=== PATIENT | female | born 1955 | race Caucasian/White ===

== ENCOUNTER 2017-06-18 09:13 | Emergency (ER) | payer MEDICARE, MEDICAID ==
[~2017-06-18] VITALS: Ht 162.6 cm; Wt 90.7 kg
[~2017-06-18 09:13] MED LIST: ABILIFY; ABILIFY10 MG PO; AMBIEN PO; B12INJ IM; BACTRIM DS TAB1 EACH PO; BENADRYL25 MG PO; BENZTROPINE MES1 MG PO; CLONAZEPAM; CYCLOBENZAPRINE; CYMBALTA; DESYREL50 MG PO; DIAZEPAM 2MG TAB2 MG PO; ESTRADIOL 1 MG T1 M1 PO; HYDROCODONE-AP1 EAC6 PO; HYDROCODONE-APA1 TA1 PO; IBUPROFEN 400400 M2 PO; IBUPROFEN 800800 MG PO; INVEGA3 MG PO; LAMICTAL; LAMICTAL100 MG PO; LISINOPRIL5 MG PO; MEDROLDOSEPACK PO; MELATONIN10 M1 PO; NEXIUM40 MG PO; NORCO 5-325 TA1 EACH PO; ONDANSETRON HCL4 M2 SUBLING; PENICILLIN VK250 MG PO; PEPCID40 MG PO; PERCOCET 5-3251 EACH PO; PREDNISONE 10 M10 M1 PO; PREDNISONE 10 M10 MG PO; PRENATAL PO; PRISTIQ50 M1 PO; SENNA8.6 MG PO; TRAZODONE HCL50 MG PO; TYLENOL325 MG PO; VENTOLIN HFA 1818 GM INH; VITAMIN D 5050000 I1 PO; XANAX 0.5 MG0.5 MG PO; XOPENEX HF1 UDINHALE INH; ZPAK PO
[2017-06-18] MEDS ORDERED: XANAX 0.5 MG0.5 MG PO (09:38)
[2017-06-18] MEDS ORDERED: XANAX1 MG PO (09:39)
[2017-06-18] MEDS ORDERED: ERGOCALCIF50000 UNIT PO (09:42)
[2017-06-18] MEDS ORDERED: WELLBUTRIN SR100 MG PO (09:45)
[2017-06-18] MEDS ORDERED: PROPRANOLOL 1010 MG PO (09:46)
[2017-06-18] MEDS ORDERED: DEPAKOTE ER250 MG PO (09:47)
[2017-06-18] MEDS ORDERED: SAPHRIS5 MG SUBLING (09:47)
[2017-06-18] MEDS ORDERED: NAPROSYN500 MG PO (09:57)
[2017-06-18 10:11] VITALS: BP 122/77
[2018-01-11] MEDS ORDERED: B12INJ IM (10:36)
[2018-01-11] MEDS ORDERED: MOBIC15 MG PO (10:37)
[2018-01-11] MEDS ORDERED: MACROBID 100 M100 M2 PO (10:39)
[2018-01-11] MEDS ORDERED: SAPHRIS5 MG SUBLING (11:05)
[2018-01-11] MEDS ORDERED: VRAYLAR3 MG PO (11:05)
[2018-01-11] MEDS ORDERED: PHENTERMINE HCL15 MG PO (11:09)
[2018-01-11] MEDS ORDERED: XANAX 0.5 MG0.5 MG PO (11:13)
== END 2017-06-18 10:11 | disposition home or self-care (01) ==
LOC: M.ERS 09:13
DX: M54.5 Low back pain (principal); F17.210 Nicotine dependence, cigarettes, uncomplicated

== ENCOUNTER 2017-11-20 15:20 | Inpatient (IN) | payer MEDICARE, MEDICAID ==
[~2017-11-20] VITALS: Ht 154.9 cm; Wt 86.6 kg
[~2017-11-20 15:20] MED LIST changes: +DEPAKOTE ER250 MG PO; +ERGOCALCIF50000 UNIT PO; +NAPROSYN500 MG PO; +PROPRANOLOL 1010 MG PO; +SAPHRIS5 MG SUBLING; +WELLBUTRIN SR100 MG PO; +XANAX1 MG PO
[2017-11-20 15:21] VITALS: BP 141/80
[2017-11-20] MEDS ORDERED: FOLGARD TABLET1 EAC1 PO (15:27)
[2017-11-20] MEDS ORDERED: LAMICTAL100 MG PO (15:28)
[2017-11-20] MEDS ORDERED: RESTORIL30 MG PO (15:28)
[2017-11-20] MEDS ORDERED: TRAZODONE HCL100 MG PO (15:28)
[2017-11-20] MEDS ORDERED: VRAYLAR1 EACH PO (15:29)
[2017-11-20 15:49] LABS: ABSOLUTE BASOPHILS 0.1 thou/uL (0.0-0.2); ABSOLUTE EOSINOPHILS 0.4 thou/uL (0.0-0.7); ABSOLUTE MONOCYTES 0.4 thou/uL (0.0-1.2); ABSOLUTE NEUTROPHILS 6.5 thou/uL (1.6-8.1); BASOPHILS 0.6 %; EOSINOPHILS 4.7 %; HEMATOCRIT 42.9 % (37.0-47.0); HEMOGLOBIN 14.6 gm/dL (12.0-15.0); LYMPHOCYTES 21.4 %; MCH 31.1 pg (26.0-34.0); MCV 91.5 fL (80.0-100.0); MONOCYTES 4.1 %; MPV 8.5 fl. (7.2-11.1); NUCLEATED RBCS 0 /100WBC; PLATELET COUNT* 288 thou/uL (150-400); POLYS 69.2 %; RBC 4.69 mil/uL (4.20-5.00); RDW-CV 14.3 % (10.5-14.5); WBC 9.4 thou/uL (4.0-11.0)
[2017-11-20 15:58] LABS: ANION GAP 9 mmol/L (7-16); APTT 27.1 Seconds (25.0-31.3); BUN 13 mg/dL (7-18); CALCIUM 9.7 mg/dL (8.5-10.1); CHLORIDE 103 mmol/L (98-107); CO2 28 mmol/L (21-32); CREATININE 0.6 mg/dL (0.6-1.3); GLUCOSE 105 mg/dL (70-99); POTASSIUM 3.9 mmol/L (3.5-5.1); PROTIME 10.1 Seconds (9.20-11.50); SODIUM 140 mmol/L (136-145)
[2017-11-20 16:08] LABS: ALBUMIN 3.4 g/dL (3.4-5.0); ALKALINE PHOSPHATASE 78 U/L (46-116); LIPASE 174 U/L (73-393); MAGNESIUM 1.7 mg/dL (1.8-2.4); NT-PRO BRAIN NAT PEPTIDE 52 pg/mL (<300); SGOT 17 U/L (15-37); SGPT 25 U/L (30-65); TOTAL BILIRUBIN 0.3 mg/dL (<0.1-1.0); TOTAL PROTEIN 7.2 g/dL (6.4-8.2); TROPONIN-I LEVEL <0.06 ng/mL (<0.06)
[2017-11-20 16:51] VITALS: BP 122/75
[2017-11-20 17:48] VITALS: BP 126/72
[2017-11-20 19:55] VITALS: BP 116/76
[2017-11-20] MEDS ORDERED: XANAX 0.5 MG0.5 MG PO (22:31)
[2017-11-21 06:11] VITALS: BP 117/77
[2017-11-21 07:35] VITALS: BP 121/71
--- NOTE | 2017-11-21 12:31 | EKG ---
[place] [address] ELECTROCARDIOGRAM REPORT Name: JORGE LUIS HARIRS Room: [address] ADM IN [facility]#: [id number] Admission: 11/20/17 Attend Phys: Savage Duong, Discharge: Date of : 59 Report #: [id number] THIS REPORT FOR: //name// [facility] ED Test Date: 2017-11-20 Test Time: 15:27:31 Pat Name: JORGE LUIS HARRIS Department: Room: [facility] Gender: F [employer] Manager: Louise HILLIARD : 1955 Requested By: Jose L Orourke Order Number: [id number] MD: Carloz Cannon Measurements Intervals [place] Rate: 90 P: 22 CO: 147 QRS: 57 QRSD: 77 T: 16 QT: 357 QTc: 437 Interpretive Statements Sinus rhythm Minimal ST elevation, lateral leads Compared to ECG 11/20/2015 12:38:06 ST (T wave) deviation now present Electronically Signed On 11-21-2017 12:30:48 CDT by Carloz Cannon [email or web address] <ELECTRONICALLY SIGNED> By: Carloz Cannon MD, FAC 11/21/17 1230 1527 1527 Carloz Cannon MD, [facility] /EPI
[2017-11-21 17:05] VITALS: BP 135/79
[2017-11-21 23:25] VITALS: BP 128/84
[2017-11-22 08:00] VITALS: BP 141/93
[2017-11-22 16:00] VITALS: BP 202/116
[2017-11-22 21:00] VITALS: BP 152/88
[2017-11-23 09:00] VITALS: BP 150/82
[2017-11-23 12:26] LABS: HEMATOCRIT 42.6 % (37.0-47.0); HEMOGLOBIN 14.3 gm/dL (12.0-15.0); MCH 30.8 pg (26.0-34.0); MCHC 33.5 g/dL (28.0-37.0); MPV 8.3 fl. (7.2-11.1); NUCLEATED RBCS 0 /100WBC; PLATELET COUNT* 340 thou/uL (150-400); RBC 4.63 mil/uL (4.20-5.00); RDW-CV 14.5 % (10.5-14.5); WBC 19.3 thou/uL (4.0-11.0)
[2017-11-23 12:35] LABS: CALCIUM 8.7 mg/dL (8.5-10.1); CREATININE 0.7 mg/dL (0.6-1.3); POTASSIUM 4.1 mmol/L (3.5-5.1)
[2017-11-23 13:05] LABS: ABSOLUTE LYMPHOCYTES 2.5 thou/uL (0.8-5.3); ABSOLUTE MONOCYTES 0.8 thou/uL (0.0-1.2)
[2017-11-23 13:06] LABS: PLATELET ESTIMATE ADEQUATE
[2017-11-23 13:07] LABS: LARGE PLATELETS RARE
[2017-11-23 14:29] LABS: URINE BILIRUBIN NEGATIVE (Negative); URINE BLOOD TRACE (Negative); URINE CLARITY CLEAR; URINE COLOR YELLOW; URINE GLUCOSE-RANDOM NEGATIVE (Negative); URINE KETONES NEGATIVE (Negative); URINE LEUKOCYTES 2+ (Negative); URINE NITRITE NEGATIVE (Negative); URINE PROTEIN NEGATIVE (Negative); URINE SPECIFIC GRAVITY <= 1.005 (1.005-1.030); URINE UROBILINOGEN 0.2 E.U./dl (0.2-1.0)
[2017-11-23 14:47] LABS: SQUAMOUS 0-3 Few /LPF (0-3)
[2017-11-23 14:48] LABS: URINE WBC 0-5 Rare /HPF (0-5)
[2017-11-23 14:49] LABS: BACTERIA 1-9 Few /HPF (None Seen); CASTS None Seen /LPF (None Seen); MUCUS None Seen strn/LPF (None Seen); URINE RBC 0-2 Rare /HPF (0-2)
[2017-11-23 14:50] LABS: CRYSTALS None Seen /LPF (None Seen)
[2017-11-23 16:51] VITALS: BP 107/59
[2017-11-24 07:40] VITALS: BP 145/78
[2017-11-24] MEDS ORDERED: CEFDINIR300 MG PO (11:30)
[2017-11-24] MEDS ORDERED: PREDNISONE 10 M10 MG PO (11:33)
[2017-11-24 12:01] VITALS: BP 145/78
[2018-01-11] MEDS ORDERED: B12INJ IM (10:36)
[2018-01-11] MEDS ORDERED: MOBIC15 MG PO (10:37)
[2018-01-11] MEDS ORDERED: MACROBID 100 M100 M2 PO (10:39)
[2018-01-11] MEDS ORDERED: SAPHRIS5 MG SUBLING (11:05)
[2018-01-11] MEDS ORDERED: VRAYLAR3 MG PO (11:05)
[2018-01-11] MEDS ORDERED: PHENTERMINE HCL15 MG PO (11:09)
[2018-01-11] MEDS ORDERED: XANAX 0.5 MG0.5 MG PO (11:13)
== END 2017-11-24 14:10 | disposition home or self-care (01) | DRG 871 ==
LOC: M.ERS 15:20 → M.TBA-ER 16:20 → M.ORTHSURG 16:20
PROVIDERS: Family Medicine; Internal Medicine; ADMIT Family Medicine
DX: A41.9 Sepsis, unspecified organism (principal); J96.01 Acute respiratory failure with hypoxia; J44.1 Chronic obstructive pulmonary disease with (acute) exacerbation; N39.0 Urinary tract infection, site not specified; F20.9 Schizophrenia, unspecified; E66.01 Morbid (severe) obesity due to excess calories; K21.9 Gastro-esophageal reflux disease without esophagitis; F17.210 Nicotine dependence, cigarettes, uncomplicated; F41.9 Anxiety disorder, unspecified; F32.9 Major depressive disorder, single episode, unspecified; D72.829 Elevated white blood cell count, unspecified; T38.0X5A Adverse effect of glucocorticoids and synthetic analogues, initial encounter; Y92.89 Other specified places as the place of occurrence of the external cause; Z68.36 Body mass index [BMI] 36.0-36.9, adult; Z98.84 Bariatric surgery status; Z90.49 Acquired absence of other specified parts of digestive tract; Z71.6 Tobacco abuse counseling; Z90.710 Acquired absence of both cervix and uterus; Z79.899 Other long term (current) drug therapy; Z88.8 Allergy status to other drugs, medicaments and biological substances; Z91.018 Allergy to other foods; Z81.8 Family history of other mental and behavioral disorders

== ENCOUNTER → 2017-12-16 | Outpatient (CLI) | payer MEDICARE, MEDICAID ==
[~2017-12-16] MED LIST changes: +CEFDINIR300 MG PO; +FOLGARD TABLET1 EAC1 PO; +MACROBID 100 M100 M2 PO; +MOBIC15 MG PO; +PHENTERMINE HCL15 MG PO; +RESTORIL30 MG PO; +TRAZODONE HCL100 MG PO; +VRAYLAR1 EACH PO; +VRAYLAR3 MG PO
== END ==
LOC: M.MRI 13:03
DX: M48.062 Spinal stenosis, lumbar region with neurogenic claudication (principal); M25.78 Osteophyte, vertebrae; M51.26 Other intervertebral disc displacement, lumbar region; I10 Essential (primary) hypertension; J44.9 Chronic obstructive pulmonary disease, unspecified; Z82.49 Family history of ischemic heart disease and other diseases of the circulatory system; Z87.891 Personal history of nicotine dependence

== ENCOUNTER → 2018-01-11 | Outpatient (CLI) | payer MEDICARE, MEDICAID ==
--- NOTE | 2018-01-17 10:00 | PAINCON ---
[address] [address] PAIN MANAGEMENT CONSULTATION Name: JORGE LUIS HARRIS [id number] Admission: 01/11/18 Attend Phys: Krissy Domingo MD Discharge: Date of : 59 Report #: [id number] THIS REPORT FOR: //name// CC: Tawnya Moe DATE OF SERVICE: 01/11/2018 CHIEF COMPLAINT: Back spine, hip and buttocks pain for about 6 months. HISTORY OF PRESENT ILLNESS: The patient is a 62-year-old female who has been referred to the pain clinic for evaluation. The patient states that for the last 6 months, she has been having more pain and discomfort. It involves in her low back area. Also, notes some pain and discomfort in the lower portion of the back and hip area. Notes some discomfort in her buttocks. She has some discomfort in the area of her spine. Denies any trauma. States that the pain has been on and off. Sometimes it is more painful than other times. The patient notes some difficulty with getting up in the morning. Notes that her pain can be pretty problematic at that juncture. She has not undergone physical therapy. States that she has been told by numerous people that physical therapy might be helpful. At this juncture, she is not inclined to go to physical therapy. Notes that standing doing dishes and activities of daily living can be quite problematic. Notes that if she sits for a while and leans forward she has some discomfort. The patient has undergone a gastric bypass. States that she weight about 300 pounds. Lost weight to about 100 pounds and currently is about 189 pounds. The patient has some difficulty remembering some facts. States that she has had about 24 ECT treatments and has some difficulty with time. ALLERGIES: TOPAMAX, THORAZINE, PEACHES caused angioedema, HALDOL causes hallucinations, TOPAMAX causes hives. CURRENT MEDICATIONS: Multivitamins, Centrum, propranolol 10 mg p.o. t.i.d., Depakote ER 1000 mg at bedtime, vitamin D3, folic acid, B12, Lamictal 100 mg daily, Restoril 30 mg at bedtime p.r.n. insomnia, trazodone 150 mg daily, Vraylar daily, alprazolam 1 mg p.o. at bedtime. DISCONTINUED MEDICATIONS: Alprazolam 0.5 mg, Drisdol 31278 units, Wellbutrin 100 mg a total of 200 mg daily, Saphris 5 mg sublingual 1700, Desyrel 50 mg/200 mg at bedtime, Nexium 40 mg daily, Pristiq 100 mg. PAST MEDICAL HISTORY: 1. Gastric bypass 5 years ago. 2. Multiple psych disorders. 3. [place] [address] PAIN MANAGEMENT CONSULTATION Name: ROSANNA HARRISLIE Joaquín [facility] [id number] Admission: 01/11/18 Attend Phys: Krissy Domingo MD Discharge: Date of : 59 Report #: [id number] 4. Hypercholesterolemia. 5. Hypercholesterolemia. PAST SURGICAL HISTORY: Hysterectomy, bladder tuck, laparoscopic cholecystectomy, electrical convulsive shock therapy. SOCIAL HISTORY: She is a , disabled. REVIEW OF SYSTEMS: Recent weight changes, fatigue, wears glasses, hearing loss, ear drainage, palpitations, frequent coughs, shortness of breath, wheezing, joint pain, joint stiffness, weakness of muscles, muscle pain, cramps, back pain, difficulty walking, lightheadedness, tremors. LABORATORY DATA: MRI of the lumbar spine dated 12/16/2017: 1. L2-L3, there is a broad-based disk bulging. There are facet osteophytes. The right and left paracentral spinal canal is narrowed measuring approximately 7 mm. There is a left foraminal protrusion. There were no significant foraminal stenosis. 2. L3-L4, there is a left extraforaminal disk bulging. The central spinal canal is not grossly narrowed. There is moderate left facet arthropathy. There is no evidence of neural foraminal stenosis. 3. L4-L5, there is left foraminal disk bulging, which appears to contact the left extraforaminal L5 nerve root. The central spinal canal is not grossly narrow. There is no evidence of neural foraminal stenosis. 4. L5-S1, there is broad-based disk bulging with a more focal right paracentral disk protrusion which contacts the right descending S1 nerve. There does not appear to be significant impingement on the nerve. The central spinal canal is not grossly narrow. A facet osteophyte probably results in [id number] right neural foraminal stenosis. PAIN CLINIC ASSESSMENT/PQRS: 1. History of osteoarthritis. The patient is not being treated for osteoarthritis or rheumatoid arthritis. 2. Height 5 feet 1 inch, weight 189 pounds, BMI is 36.3. 3. Vital Signs: Blood pressure 134/78, heart rate 101, respiratory rate 16, room air saturation 95%. Temperature 98.2. 4. Pain score 8/10. 5. Fall risk. The patient has not fallen in the last 3 months. 6. Blood thinner. The patient is not on a blood thinning medication. 7. History of hypertension. The patient has been treated for hypertension. 8. Opioid therapy. The patient is not on an opioid regimen. 9. Risk assessment tool. 10. Functional assessment tool. 11. Recreational drug use. The patient denies use of recreational drugs. 12. Tobacco: The patient does admit to smoking tobacco, has a strong odor of tobacco in the room [place] [address] PAIN MANAGEMENT CONSULTATION Name: JORGE LUIS HARRIS Room: [facility]#: [id number] Admission: 01/11/18 Attend Phys: Krissy Domingo MD Discharge: Date of : 59 Report #: [id number] 13. Alcohol: The patient denies use of alcoholic beverages. The patient has been smoking since age 15. PHYSICAL EXAMINATION: GENERAL: The patient is a well-developed, well-nourished white female. Appears assertive stated age. She is alert and oriented x 3. She does speak somewhat slow and is in a somewhat guarded fashion. Neck HEENT: Normocephalic, atraumatic. Extraocular eye muscles intact. Sclerae nonicteric. Mucous membranes are moist. The patient does not have teeth. She is edentulous. NECK: Without adenopathy or JVD. HEART: Regular rate. LUNGS: Clear to auscultation. ABDOMEN: Protuberant. Bowel sounds present. The patient complains of pain and discomfort in the lower back area with increased pain and discomfort with lumbar extension, flexion, left and right lateral rotation, left and right lateral movement. Denies pain radiating down into her legs. Palpation in the left and right L5 paraspinous area does reproduce a component of the patient's pain. This is an area near the gluteus tylor and the latissimus dorsi on the left and right. IMPRESSION: 1. Myofascial pain. The other remaining past medical history items. RECOMMENDATIONS: We discussed treatment options with the patient possibility of improvement using a trigger point injection were discussed. The patient will return to the pain clinic in the future, at which time she will undergo a trigger point injection to the aforementioned items. Hopefully, this will increase her of comfort. We would like to thank you for letting us participate in her care. We hope she continues to improve. <ELECTRONICALLY SIGNED> By: Krissy Domingo MD 01/17/18 1000 [id number]. Leonel Domingo MD /[facility]
== END ==
LOC: M.PC 04:32
DX: M19.90 Unspecified osteoarthritis, unspecified site (principal); I10 Essential (primary) hypertension; F17.210 Nicotine dependence, cigarettes, uncomplicated; Z79.891 Long term (current) use of opiate analgesic

== ENCOUNTER → 2018-01-27 | Outpatient (CLI) | payer MEDICARE, MEDICAID ==
--- NOTE | 2018-02-16 16:20 | PAINCON ---
[facility] [address] [place] [address] PAIN MANAGEMENT CONSULTATION Name: JORGE LUIS HARRIS [facility] [id number] Admission: 01/27/18 Attend Phys: Krissy Domingo MD Discharge: Date of : 59 Report #: [id number] THIS REPORT FOR: //name// CC: Tawnya Domingo DATE OF SERVICE: 01/27/2018 CHIEF COMPLAINT: Here for an injection in the low back. FOLLOWUP HISTORY: The patient is a 62-year-old female who has been seen in the pain clinic. The patient has pain and discomfort in the low back area. She has had this pain, which has been problematic for the last 6 months. Notes that it involves the middle portion of her low back area. Denies any trauma. Notes that the pain waxes and wanes. Sometimes, she has some difficulty getting up in the morning because of the pain. She has not undergone physical therapy yet. Notes that if she is doing activities with prolonged standing that her pain can be quite problematic. As you may recall, she has lost significant amount of weight, about 100 pounds. She has undergone gastric bypass. The patient ECT treatments in the past. Sometimes remembering things can be a little problematic. ALLERGIES: TOPAMAX, THORAZINE, PEACHES CAUSED ANGIOEDEMA, HALDOL CAUSES HALLUCINATIONS, AND TOPAMAX CAUSED HIVES. MEDICATIONS: Multiple vitamin, Centrum, propranolol 10 mg 1 p.o. t.i.d., Depakote ER 750 mg at bedtime, vitamin D3, folic acid, B12, Lamictal 100 mg, Restoril 30 mg at bedtime, trazodone 150 mg daily, Vraylar daily, alprazolam 1 mg p.o. at bedtime. DISCONTINUE MEDICATION IN THE PAST: Alprazolam 0.5 mg, Drisdol 5000 units, Wellbutrin 100 mg total 200 mg daily, Saphris 5 mg sublingual, Desyrel 50 mg/200 at bedtime, and Nexium 40 mg, and Pristiq 100 mg. PAIN CLINIC ASSESSMENT/PQRS: 1. History of osteoarthritis. The patient is not being treated for osteoarthritis or rheumatoid arthritis. 2. Height 5 feet 1 inch, weight 188 pounds, BMI is 35.7. 3. Vital Signs: Blood pressure 142/58, heart rate 96, respiratory rate 16, room air saturation 96%, temperature 98.4. 4. Pain score 7/10. 5. Fall history. The patient has not fallen in the last 3 months. 6. Blood thinner. The patient is not on a blood thinning medication. 7. History of hypertension. The patient is being treated for hypertension. 8. Opioid therapy. The patient is not on an opioid medications. 9. [place] [address] PAIN MANAGEMENT CONSULTATION Name: ROSANNA HARRISLIE Joaquín Room: [facility]#: [id number] Admission: 01/27/18 Attend Phys: Krissy Domingo MD Discharge: Date of : 59 Report #: [id number] 10. Functional assessment tool. 11. Recreational drug use. The patient denies use of recreational drugs. 12. Tobacco: The patient does admit to smoking one-half pack of cigarettes per day. We have discussed the importance and benefits of cessation of tobacco smoking. The patient states she would think about it. 13. Alcohol: The patient denies use of alcoholic beverages. The patient does not drink on a regular basis. PHYSICAL EXAMINATION: GENERAL: The patient is a well-developed, well-nourished white female. Appears her stated age. She is alert and oriented x 3. Affect is appropriate. Speech is fluent, somewhat slow. HEENT: Normocephalic, atraumatic. Extraocular eye muscles intact. Sclerae nonicteric. Mucous membranes are moist. The patient does not have teeth. She is edentulous. NECK: Without adenopathy or JVD. HEART: Regular rate. LUNGS: Clear to auscultation without rales or crackles. ABDOMEN: Protuberant. Bowel sounds present. The patient complains of pain and discomfort in the lower portion of her back in the area of the left and right posterior superior iliac spine areas. Palpation into these areas causes pain. Her pain to be reproduced on the left and right side. The patient has some areas near the gluteus tylor and latissimus dorsi on the left as well as the right. Palpation causes reproduction of this pain and discomfort. IMPRESSION: 1. Myofascial pain. 2. Gastric bypass 5 years ago. 3. Multiple psych disorder. 4. Schizophrenia. 5. Hypercholesterolemia. RECOMMENDATIONS: We discussed treatment options with the patient. Risks and benefits of a trigger point injection were discussed. They include but are not limited to infection, worsening of pain, no improvement in pain, the patient elects to proceed. PROCEDURE NOTE: The patient was placed in the sitting position. Her back was sterilely prepped with a Betadine solution. A 0.5% bupivacaine and 80 mg Depo-Medrol was injected on the left side. Trigger point #1. The patient tolerated the procedure well. The contralateral side #2, was treated in a like fashion. A 0.5% bupivacaine and a 21-gauge needle was advanced into the trigger point area near the gluteus tylor and latissimus dorsi. She tolerated the procedure well. She remained in the pain clinic for an appropriate amount of time. She will follow [place] [address] PAIN MANAGEMENT CONSULTATION Name: JORGE LUIS HARRIS Room: [facility]#: [id number] Admission: 01/27/18 Attend Phys: Krissy Domingo MD Discharge: Date of : 59 Report #: [id number] We would like to thank you for letting us participate in her care. We hope she continues to improve. <ELECTRONICALLY SIGNED> By: Krissy Domingo MD 02/16/18 1620 1356 [id number]. Leonel Domingo MD /hanny
== END | disposition home or self-care (01) ==
LOC: M.PC 04:45
DX: M79.18 Myalgia, other site (principal); Z98.84 Bariatric surgery status; F99 Mental disorder, not otherwise specified; F20.9 Schizophrenia, unspecified; E78.00 Pure hypercholesterolemia, unspecified; I10 Essential (primary) hypertension; M19.90 Unspecified osteoarthritis, unspecified site; Z68.35 Body mass index [BMI] 35.0-35.9, adult; F11.20 Opioid dependence, uncomplicated

== ENCOUNTER → 2018-03-14 | Outpatient (CLI) | payer MEDICARE, MEDICAID | LOC: M.RAD 02-17 10:20 | DX: Z12.31 Encounter for screening mammogram for malignant neoplasm of breast (principal); N91.2 Amenorrhea, unspecified; E55.9 Vitamin D deficiency, unspecified; Z78.0 Asymptomatic menopausal state ==

== ENCOUNTER → 2018-06-28 | Outpatient (CLI) | payer MEDICARE, MEDICAID ==
--- NOTE | ~2018-06-28 | PAINCON ---
[address] [address] PAIN MANAGEMENT CONSULTATION Name: JORGE LUIS HARRIS Room: [facility]#: [id number] Admission: 06/28/18 Attend Phys: Krissy Domingo MD Discharge: Date of : 59 Report #: [id number] THIS REPORT FOR: //name// CC: Tawnya Domingo DATE OF SERVICE: 06/28/2018 CHIEF COMPLAINT: Back pain I would like to get trigger point injection. HISTORY: The patient is a 62-year-old female who has been seen in the pain clinic because of low back pain. She underwent trigger point injection to the low back area at the last visit. She gleaned benefits from this. She has noticed that her pain has started to increase. It involves her low back and hip area. Feels that some of the pain is in the lower portion of her back and radiates down into her thigh. She finds that the meloxicam and her other medications are somewhat helpful. She has returned today with a desire to undergo trigger point injections to her low back. This was helpful for quite a number of months. ALLERGIES: TOPAMAX, THORAZINE, PEACHES CAUSE ANGIOEDEMA, HALDOL CAUSES HALLUCINATIONS, TOPAMAX CAUSED HIVES. MEDICATIONS: Multiple vitamins, Centrum, propranolol 10 mg 1 p.o. t.i.d., Depakote 750 mg at bedtime, vitamin D3, folic acid, B12, Lamictal 100 mg, Restoril 30 mg at bedtime, trazodone 150 mg daily, Vraylar daily, alprazolam 1 mg at bedtime. Discontinued medications in the past include alprazolam 0.5 mg, Drisdol 5000 units, Wellbutrin 100 mg total 200 mg daily, Saphris 5 mg sublingual, Desyrel 50 mg/200 at bedtime, Nexium 40 mg, Pristiq 100 mg. PAIN CLINIC ASSESSMENT/PQRS: 1. The patient is not being treated for osteoarthritis or rheumatoid arthritis. 2. Height 5 feet 1 inch, weight is 179 pounds, BMI is 34. 3. Vital Signs: Blood pressure 119/77, heart rate 103, respiratory rate 16, room air saturation is 98%, temperature 98. Pain intensity 10/12. 4. Fall history: The patient has not fallen in the last 3 months. 5. Blood thinner. The patient is not on a blood thinning medication. 6. Hypertension. The patient is being treated for hypertension. 7. Opioids greater than 6 weeks. The patient is not on her opioid regimen. 8. Risk assessment tool. 9. Functional assessment tool. 10. Recreational drug use. The patient denies use of recreational drugs. 11. Tobacco: The patient admits to smoking 1-1/2 packs cigarettes per day. Importance of smoking cessation has been [place] [address] PAIN MANAGEMENT CONSULTATION Name: ROSANNA HARRISLIE Joaquín Room: [facility]#: [id number] Admission: 06/28/18 Attend Phys: Krissy Domingo MD Discharge: Date of : 59 Report #: [id number] 12. Alcohol: The patient denies use of alcoholic beverages. PHYSICAL EXAMINATION: GENERAL: The patient is a well-developed, well-nourished white female. Appears her stated age. She is alert and oriented x 3. Her affect is one of nervousness. She is at the same level of anxiety, which she demonstrated the last visit. HEENT: Normocephalic, atraumatic. Extraocular eye muscles intact. Sclerae nonicteric. Mucous membranes are moist. The patient edentulous. NECK: Without adenopathy or JVD. HEART: Regular rate. LUNGS: Clear to auscultation without rhonchi or rales. ABDOMEN: Protuberant. EXTREMITIES: Lower extremity muscle strength is judged to be 5/5 for the major muscle groups. Upper extremity muscle strength is judged to be 5/5 for the major muscle groups in the upper extremity. Palpation in the left and right posterior superior iliac spine areas reproduced the patient's discomfort. These cause her to pull away and ____ with palpation of the trigger points in the left and right area. IMPRESSION: 1. Myofascial pain, left and right low back area. 2. Gastric bypass 5 years ago. 3. Multiple psychiatric disorder. 4. Schizophrenia. 5. Hypercholesterolemia. RECOMMENDATIONS: We discussed treatment options with the patient. Risks and benefits of trigger point injection to the affected area were again reviewed. The patient states that she has gotten a good amount of relief from the pain after the last injection and would like to proceed today. She is still somewhat cautious and nervous. She is able to get on the examination table with help from the staff. She is less anxious that she was at the last visit. Her back was sterilely prepped with a Betadine solution. The trigger point was noted in the left posterior superior iliac spine area near the gluteus tylor and latissimus dorsi. A 25-gauge needle was then advanced to the area of the trigger point. The patient states that this did reproduce some discomfort. Aspiration was negative. A total 8 mL of 0.5% bupivacaine and 80 mg Depo-Medrol was injected. The right contralateral area was treated in a like fashion. Trigger point was identified. She was in the area of the right posterior superior iliac spine near the latissimus dorsi and gluteus tylor. A 25-gauge needle was then advanced to the area of the trigger point. The patient states this did reproduce her discomfort. Total of 80 mg Depo-Medrol with 8 mL of 0.5% bupivacaine was injected. The patient's pain decreased from 7-0 [place] [address] PAIN MANAGEMENT CONSULTATION Name: JORGE LUIS HARRIS Joaquín Room: [facility]#: [id number] Admission: 06/28/18 Attend Phys: Krissy Domingo MD Discharge: Date of : 59 Report #: [id number] discharge. She will follow up in the future as needed. We would like to thank you for letting us participate in her care. We hope she continues to improve. By: [id number]. Leonel Domingo MD /nt
== END | disposition home or self-care (01) ==
LOC: M.PC 09:00
DX: M79.18 Myalgia, other site (principal); I10 Essential (primary) hypertension; J44.1 Chronic obstructive pulmonary disease with (acute) exacerbation; F99 Mental disorder, not otherwise specified; F23 Brief psychotic disorder; E78.00 Pure hypercholesterolemia, unspecified; Z88.8 Allergy status to other drugs, medicaments and biological substances; Z79.899 Other long term (current) drug therapy

== ENCOUNTER → 2018-08-09 | Outpatient (CLI) | payer MEDICARE, MEDICAID ==
[~2018-08-09] MED LIST changes: +DICLOFENAC SODI75 MG PO
--- NOTE | ~2018-08-09 | PAINCON ---
[address] [address] PAIN MANAGEMENT CONSULTATION Name: JORGE LUIS HARRIS Room: [facility] Jim#: [id number] Admission: 08/09/18 Attend Phys: Krissy Domingo MD Discharge: Date of : 59 Report #: [id number] THIS REPORT FOR: //name// CC: Tawnya Moe DATE OF SERVICE: 08/09/2018 CHIEF COMPLAINT: The last injection helped and decrease the pain by about 80% for about 2 weeks. HISTORY: The patient is a 62-year-old female who has been seen in the pain clinic because of myofascial pain as well as some lumbar radicular pain. She has undergone an epidural steroid injection in the past and gleaned 2 weeks benefit from that. Her pain decreased by about 80%. She also has had trigger point injections to the low back area and gleaned some benefit from that. Rates her pain today as a 7-8/10. Feels that the medication that has been most helpful, has been the diclofenac 75 mg twice a day. She would like to have this medication renewed. She feels that the diclofenac was better on pain relief than Mobic. Denies any GI complaints. The patient states that she has had talked with her psychiatrist. There are some concerns about the steroid medications pushing the patient into a more manic state. States that she did not feel like she is in very manic state after the injections. 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 She feels that the tobin portion is decreasing and now feels that she might be drifting more toward the depressive state. She has some pain in her right thumb on the very tip. There is no significant dermatomal distribution. It is just the tip of her thumb that hurts. She has had some increased pain and discomfort with left as well as with right lateral rotation. Notes some pulling sensation with right lateral rotation, but is less so when she rotates back to the contralateral side. States that she is sleeping 4-6 hours per night. Has noted some increased pain in the buttocks area and tailbone when she goes to the bathroom. Has some pain and discomfort in the left as well as the top of the right hip. ALLERGIES: TOPAMAX, THORAZINE, PEACHES cause ANGIOEDEMA, HALDOL cause health HALLUCINATIONS, TOPAMAX cause HIVES. MEDICATIONS: Multiple vitamins, Centrum, propranolol 10 mg 1 p.o. t.i.d., Depakote 750 mg, vitamin D3, folic acid, B12, Lamictal 100 mg, Restoril 30 mg at bedtime, trazodone 150 mg daily, Vraylar daily, alprazolam 1 mg at bedtime. Discontinued medications in the past have included alprazolam 0.5 mg, Drisdol 500 units, Wellbutrin 200 mg daily, Saphris 5 mg sublingual, Desyrel 50 mg/200 at bedtime, Nexium 40 mg, Prist[place] [address] [place] [address] PAIN MANAGEMENT CONSULTATION Name: JORGE LUIS HARRIS Room: [facility]#: [id number] Admission: 08/09/18 Attend Phys: Krissy Domingo MD Discharge: Date of : 59 Report #: [id number] PAIN CLINIC ASSESSMENT/PQRS: 1. The patient is not being treated for osteoarthritis or rheumatoid arthritis. 2. Height 5 feet 1 inch, weight 174 pounds, BMI is 33. 3. Vital Signs: Blood pressure 106/72, heart rate 95, respiratory rate 18, room air saturation 96%, temperature 97.9. 4. Pain intensity is 7-8/10. 5. Fall history. The patient has not fallen in the last 3 months. 6. Blood thinner. The patient is not on a blood thinning medication. 7. Hypertension. The patient is being treated for hypertension. 5. Risk assessment tool, moderate for opioid use. 6. Functional assessment tool. 7. Recreational drug use. The patient denies use of recreational drugs. 8. Tobacco: The patient admits to smoking one-half pack of cigarettes per day. Discussed the benefits of smoking cessation. 9. Alcohol: The patient denies use of alcoholic beverages. PHYSICAL EXAMINATION: GENERAL: The patient is a well-developed, well-nourished white female. Appears her stated age. She is alert and oriented x 3. Her affect is one of nervousness than at the last visit. She does smell of tobacco. HEENT: Normocephalic, atraumatic. Extraocular eye muscles intact. Sclerae nonicteric. Mucous membranes are moist. NECK: Without adenopathy or JVD. HEART: Regular rate. ABDOMEN: Nontender. Bowel sounds present. LUNGS: Clear to auscultation without rhonchi or rales. EXTREMITIES: Upper extremity muscle strength judged to be 5/5 for the major muscle groups. The patient rotates her torso to the right. She complains of some muscle tension and discomfort. Rotation to the left decreases that muscle tension. The patient has pain and discomfort in the left and the right hip area near the posterior superior iliac spine. Has some pain and discomfort on the top of her hips. IMPRESSION: 1. Myofascial pain, left and right low back area. 2. Gastric bypass 5 years ago. 3. Multiple psychiatric disorder. 4. Schizophrenia. 5. Hypercholesterolemia. RECOMMENDATIONS: We discussed treatment options with the patient. At this juncture, overall, she feels that her things are going reasonably well. She did gleaned benefit from the epidural steroid injection. Noticed about 80% decrease over a 2-week period of time, but has noted some return of the pain. She feels that she is less anxious than she was a few weeks ago. Her significant other . She feels now that [place] [address] PAIN MANAGEMENT CONSULTATION Name: JORGE LUIS HARRIS Joaquín Room: [facility]#: [id number] Admission: 08/09/18 Attend Phys: Krissy Domingo MD Discharge: Date of : 59 Report #: [id number] depressed because of his . Has some difficulty getting around from because of lack of transportation. Feels that the diclofenac 75 mg b.i.d. was more advantageous than Mobic. We will renew her medications. A script and a script for diclofenac 75 mg 1 p.o. b.i.d., total of 4 refills have been rewritten. The patient will call us if she has any concerns. We would like to thank you for letting us participate in her care. We hope she continues to improve. By: [id number]. Leonel Domingo MD /MARIANNE
== END ==
LOC: M.PC 04:37
DX: M54.5 Low back pain (principal); M79.18 Myalgia, other site; E78.00 Pure hypercholesterolemia, unspecified; F20.9 Schizophrenia, unspecified; F09 Unspecified mental disorder due to known physiological condition; Z98.84 Bariatric surgery status

== ENCOUNTER 2019-02-02 21:16 | Emergency (ER) | payer MEDICARE, MEDICAID ==
[~2019-02-02] VITALS: Ht 154.9 cm; Wt 84.8 kg
[~2019-02-02 21:16] MED LIST changes: +NORCO 5-325 TA1 EAC1 PO
[2019-02-02] MEDS ORDERED: VRAYLAR3 MG PO (21:29)
[2019-02-02] MEDS ORDERED: CELEBREX 200 M200 M1 PO (21:31)
[2019-02-02] MEDS ORDERED: LYRICA 50 MG50 MG PO (21:31)
[2019-02-02 23:13] LABS: ABSOLUTE BASOPHILS 0.1 thou/uL (0.0-0.2); ABSOLUTE EOSINOPHILS 0.2 thou/uL (0.0-0.7); ABSOLUTE MONOCYTES 0.7 thou/uL (0.0-1.2); ABSOLUTE NEUTROPHILS 6.4 thou/uL (1.6-8.1); BASOPHILS 0.9 %; EOSINOPHILS 1.5 %; HEMATOCRIT 38.1 % (37.0-47.0); LYMPHOCYTES 29.1 %; MCH 31.1 pg (26.0-34.0); MCHC 34.1 g/dL (28.0-37.0); MCV 91.2 fL (80.0-100.0); MONOCYTES 6.9 %; MPV 7.8 fl. (7.2-11.1); NUCLEATED RBCS 0 /100WBC; PLATELET COUNT* 372 thou/uL (150-400); POLYS 61.6 %; RBC 4.18 mil/uL (4.20-5.00); RDW-CV 14.7 % (10.5-14.5); WBC 10.4 thou/uL (4.0-11.0)
[2019-02-02 23:18] LABS: CREATININE 0.7 mg/dL (0.6-1.3); POTASSIUM 3.9 mmol/L (3.5-5.1)
[2019-02-03 01:49] VITALS: BP 135/73
--- NOTE | 2019-02-03 14:36 | EKG ---
[place] [address] ELECTROCARDIOGRAM REPORT Name: JORGE LUIS HARRIS Room: [facility]#: [id number] Admission: 02/02/19 Attend Phys: Discharge: 02/03/19 Date of : 59 Report #: [id number] THIS REPORT FOR: //name// [facility] ED Test Date: 2019-02-02 Test Time: 21:34:21 Pat Name: JORGE LUIS HARRIS Department: Room: Gender: F Factory Worker: LISBETH : 1955 Requested By: Brigitte Dorantes Order Number: [id number] Zuleyka MD: Osvaldo Gonsales Measurements Intervals [place] Rate: 88 P: 77 [place]: 134 QRS: 53 QRSD: 79 T: 54 QT: 359 QTc: 435 Interpretive Statements Sinus rhythm Low voltage, precordial leads Compared to ECG 11/20/2017 15:27:31 Low QRS voltage now present ST (T wave) deviation no longer present Electronically Signed On 02-03-2019 14:35:46 CDT by Osavldo Gonsales [email or web address] <ELECTRONICALLY SIGNED> By: Osvaldo Gonsales MD, [facility] 02/03/19 1435 33 33 Osvaldo Gonsales MD, FACC /EPI
== END 2019-02-03 01:50 | disposition short-term general hospital (02) ==
LOC: M.ERS 21:16
PROVIDERS: Emergency Medicine
DX: D32.0 Benign neoplasm of cerebral meninges (principal); M54.6 Pain in thoracic spine; R06.2 Wheezing; F31.9 Bipolar disorder, unspecified; F20.9 Schizophrenia, unspecified; F17.210 Nicotine dependence, cigarettes, uncomplicated; Z90.710 Acquired absence of both cervix and uterus; Z90.49 Acquired absence of other specified parts of digestive tract; Z91.018 Allergy to other foods; Z88.8 Allergy status to other drugs, medicaments and biological substances